=== PATIENT | male | born 1955 | race Caucasian/White ===

== ENCOUNTER 2019-04-26 14:53 | Outpatient (CLI) | payer BC ==
[~2019-04-26 14:53] MED LIST: NO HOME MEDS
[2019-04-26 15:47] LABS: BASOPHILS % (AUTO) 0.6 % (0-1); EOSINOPHILS # (AUTO) 0.1 X10'3 (0-0.9); EOSINOPHILS % (AUTO) 2.4 % (0-6); HEMATOCRIT 44.6 % (42.0-52.0); HEMOGLOBIN 15.6 g/dl (14.0-17.9); LYMPHOCYTES # (AUTO) 0.8 X10'3 (1.1-4.8); MEAN CORPUSCULAR HEMOGLOBIN 32.8 PG (27.0-31.0); MEAN CORPUSCULAR HGB CONC 34.9 g/dL (33.0-36.5); MEAN CORPUSCULAR VOLUME 93.9 FL (78-98); MEAN PLATELET VOLUME 8.6 FL (7.4-10.4); MONOCYTES # (AUTO) 0.4 X10'3 (0-0.9); MONOCYTES % (AUTO) 7.2 % (2-12); NEUTROPHILS # (AUTO) 4.4 X10'3 (1.8-7.7); NEUTROPHILS % (AUTO) 75.8 % (42-75); PLATELET COUNT 229 X10'3 (140-440); RED BLOOD COUNT 4.75 X10'6 (4.70-6.10); RED CELL DISTRIBUTION WIDTH 13.1 % (11.5-14.5); WHITE BLOOD COUNT 5.8 X10'3 (4.5-11.0)
[2019-04-26 15:57] LABS: PARTIAL THROMBOPLASTIN TIME 26 SECONDS (22-32)
[2019-04-26 16:00] LABS: ALANINE AMINOTRANSFERASE 29 U/L (12-78); ALBUMIN 4.1 G/DL (3.4-5.0); ALBUMIN/GLOBULIN RATIO 1.2 (1.1-1.5); ALKALINE PHOSPHATASE 60 IU/L (46-116); ANION GAP 7 (8-16); ASPARTATE AMINO TRANSFERASE 20 U/L (10-37); BILIRUBIN,TOTAL 0.6 MG/DL (0.1-1.0); BLOOD UREA NITROGEN 14 MG/DL (7-18); BUN/CREATININE RATIO 22.6 (5.4-32.0); CALCIUM 8.7 MG/DL (8.5-10.1); CHLORIDE 105 MMOL/L (99-107); CREATININE 0.62 MG/DL (0.60-1.10); GLUCOSE 117 MG/DL (70-104); POTASSIUM 3.7 MMOL/L (3.5-5.1); SODIUM 140 MMOL/L (135-145); TOTAL CARBON DIOXIDE 28.3 MMOL/L (24-32); TOTAL PROTEIN 7.4 G/DL (6.4-8.2); eGFR > 90 ML/MIN
== END 2019-04-26 23:59 | disposition home or self-care (01) ==
LOC: LAB 14:53
PROVIDERS: ATTEND Otolaryngology
DX: D69.1 Qualitative platelet defects (principal)
CPT/HCPCS: 36415; 80053; 85025; 85576; 85610; 85730

== ENCOUNTER 2025-02-18 14:45 | Emergency (ER) | payer MEDICARE ==
[~2025-02-18] VITALS: Ht 188 cm; Wt 134.0 kg
[2025-02-18 14:51] VITALS: TEMP 99.6
[2025-02-18 15:19] LABS: LEUKOCYTE ESTERASE ,URINE NEGATIVE (Neg); NITRITES, URINE POSITIVE (Neg); OCCULT BLOOD,URINE SMALL (Neg)
[2025-02-18 15:24] LABS: UA COLLECTION TYPE VOIDED
[2025-02-18 15:50] LABS: SQUAMOUS EPITHELIAL CELL,UR FEW /LPF (FEW)
[2025-02-18 15:51] LABS: WBC CLUMPS,URINE FEW /HPF (NEGATIVE)
[2025-02-18] MEDS: normal saline 1000ML IV soln IVB ONE (16:07)
[2025-02-18 16:13] LABS: MEAN PLATELET VOLUME 8.0 FL (7.4-10.4); RED CELL DISTRIBUTION WIDTH 13.2 % (11.5-14.5)
[2025-02-18 16:14] LABS: CREATININE 0.64 MG/DL (0.60-1.10); TOTAL CARBON DIOXIDE 24.3 MMOL/L (24-32); eCRCL 125 ML/MIN; eGFR > 90 ML/MIN
[2025-02-18] MEDS: CefTRIAXone 1000mg IM Kit (w/lidocaine diluent) IM ONE (16:31)
[2025-02-18] MEDS ORDERED: SULF1TAB49 PO (16:36)
--- NOTE | 2025-02-18 16:36 | Physician Documentation ---
History of Present Illness ~ Chief Complaint: Urinary Symptoms Stated Complaint: URINARY COMPLICATIONS Time Seen by MD: 15:07 OK to notify your PCP?: Yes Primary Medical Doctor: NONE Source: patient Mode of Arrival: POV Exam Limitations: no limitations HPI 69 y/o male with uncontrolled diabetes here for pain with urination and urinary urgency x 2days. No pre-arrival treament. Reports some mild nausea, no vomiting. No fever, chills, chest pain, sob, abdominal pain, flank pain, blood in urine. Medication Reconciliation Allergies: Coded Allergies: No Known Allergies (Unverified , 07/08/12) Miscellaneous Medications Home Med List (No Home Medications), (Reported) Past Medical History Past Medical History: No Pertinent History Alcohol Use: None Drug Use: none Review of Systems All Other Systems at this time: Reviewed and Negative Physical Exam Vital Signs: Temperature: 99.6, Source: Oral, Heart Rate: 82, Respiratory Rate: 16, BP: 135/74, Pulse Oximetry: 94, Weight: 134.000 Oxygen Flow Rate: 0 Physical Exam GENERAL: Alert, no acute distress. HEENT: NCAT, EOMI, PERRL, normal oropharynx, moist oral mucosa. NECK: Supple, trachea midline. CARDIAC: Regular rate and rhythm, no murmurs, rubs, or gallops. PV: Equal distal pulses. No lower extremity edema, cap refill less than 2 seconds. RESPIRATORY: Equal breath sounds, clear to auscultation bilaterally, no respiratory distress. GASTROINTESTINAL: Non distended, soft, nontender, No guarding or rebound. MUSCULOSKELETAL: Normal range of motion, nontender, no swelling. Normal gait. BACK: NO CVA TTP. NEUROLOGICAL: Awake, alert, and oriented x 3. SKIN: Warm/dry, no pallor, no rash. PSYCH: Alert and appropriate. Affect congruent with mood. Speech is clear. Good eye contact. Progress Results/Orders Reviewed/noted all lab results: Yes Results/Orders Orders - VERO LONGO Cult Urine + [address] (02/18/25 15:54) Completed Orders - VERO LONGO Ua W/Microscopic, Cult If Ind (02/18/25 14:54) Cbc/Diff (02/18/25 15:46) BMP (02/18/25 15:46) Normal Saline 1000ml (0.9% Sodium Chlori (02/18/25 15:50) Ceftriaxone Im Kit W/Lidocaine (Rocephin (02/18/25 16:25) Vital Signs 02/18/25 14:51 Temp 99.6 Pulse 82 Resp 16 B/P (MAP) 135/74 Pulse Ox 94 O2 Flow Rate 0 Laboratory Tests Test 02/18/25 14:54 02/18/25 15:58 Urine Specimen Description Voided Urine Color Yellow Urine Clarity Slightly cloudy Urine pH 6.0 Urine Specific [place] 1.020 Urine Protein 30 H Urine Glucose (UA) 500 H Urine Ketones >=80 Urine Occult Blood Small Urine Nitrite Positive H Urine Bilirubin Negative Urine Urobilinogen 0.2 Urine Leukocyte Esterase Negative Urine RBC 3-10 Urine WBC 10-20 H Urine WBC Clumps Few Urine Squamous Epithelial Cells Few Urine Bacteria 4+ Urine Coarse Granular Casts Urine Culture Indicated Indicated Volume Urine Centrifuged 10 ml Urine Comment White Blood Count 11.1 H Red Blood Count 4.27 L Hemoglobin 13.8 L Hematocrit 39.7 L Mean Corpuscular Volume 93.1 Mean Corpuscular Hemoglobin 32.5 H Mean Corpuscular Hemoglobin Concent 34.9 Red Cell Distribution Width 13.2 Platelet Count 148 Mean Platelet Volume 8.0 Neutrophils (%) (Auto) 89.2 H Lymphocytes (%) (Auto) 2.8 L Monocytes (%) (Auto) 7.1 Eosinophils (%) (Auto) 0.5 Basophils (%) (Auto) 0.4 Neutrophils # (Auto) 9.9 H Lymphocytes # (Auto) 0.3 L Monocytes # (Auto) 0.8 Eosinophils # (Auto) 0.1 Basophils # (Auto) 0.0 CBC Comment Sodium Level 130 L Potassium Level 4.1 Chloride Level 97 L Carbon Dioxide Level 24.3 Anion Gap 9 Blood Urea Nitrogen 14 Creatinine 0.64 Estimated GFR/1.73 m2 > 90 BUN/Creatinine Ratio 21.9 H Glucose Level 292 H Calcium Level 8.9 Albumin 3.2 L Chemistry Comments Re-Evaluation Re-Evaluation : Re-Evaluation Time: 16:37 Re-Evaluation: Improved Progress PATIENT REPORTED FEELING IMPROVED AFTER IV FLUIDS Medical Decision Making Urinary Diff Dx:Considerations: Include: AAA, Aortic dissection, Appendicitis, Appendicitis train, Bowel obstruction, Bladder outlet obstruc., Cholelithiasis, Choleangitis, Cholecystitis, DJD, Epididymitis, Hepatitis, HNP, Impaction, Musculoskeletal pain, Pancreatitis, Postoperative Comp., Prostatitis, Pyelonephritis, Renal failure, Renal infarction, Strain, Urolithiasis, Urinary Obstruction, Urethritis, Urinary retention, UTI Additional Comment WHITE COUNT SLIGHTLY ELEVATED BUT AFEBRILE, NOT TACHYCARDIC, NONTOXIC APPEARING. NO CVA TTP ON EXAM. Departure Time of Disposition: 16:34 Disposition: 01 HOME / SELF CARE / HOMELESS Impression: Primary Impression: Acute urinary tract infection Additional Impression: Diabetes mellitus Qualified Codes: E11.69 - Type 2 diabetes mellitus with other specified complication Condition: Stable Discharge Instructions: Urinary Tract Infection, Adult Additional Instructions: ANTIBIOTICS SENT TO PHARMACY WORK WITH MEDICAL PROVIDER ON GETTING A1C DOWN YOU REPORT IT WAS RECENTLY OVER 9 IF FEVER, CHILLS, VOMITING, ABDOMINAL PAIN OR ANY OTHER CONCERNING SYMPTOMS RETURN TO ER Referrals: NO PRIMARY CARE PROVIDER (PCP) Prescriptions Sulfamethoxazole/Trimethoprim (Bactrim Ds Tablet) 800 Mg-160 Mg Tablet 1 TAB PO Q12H for 14 Days, #28 TAB Prov: VERO LONGO 02/18/25 Education Educated: Patient, Family Educated regarding: diagnosis, treatment, need for follow up Signature Scribe Signature: X Attestation: VERO NAYAK Feb 18, 2025 16:36
[2025-02-18] MEDS: CefTRIAXone/D5W-Rocephin 1gm 50 ML IV ONE (16:43)
[2025-02-18 16:56] LABS: BANDS% (MANUAL) 3.0 % (0-10); LYMPHOCYTES % (MANUAL) 3.0 % (21-51); MONOCYTES % (MANUAL) 8.0 % (2-12); NEUTROPHILS % (MANUAL) 86.0 % (42-75); PLATELET ESTIMATE NORMAL
[2025-02-18 17:20] VITALS: BP 129/77; PULSE 77; RESP 16; O2SAT 98
== END 2025-02-18 17:21 | disposition home or self-care (01) ==
LOC: ER 14:45
DX: N39.0 Urinary tract infection, site not specified (principal); E11.9 Type 2 diabetes mellitus without complications
CPT/HCPCS: 36415; 80048; 81001; 85007; 85025; 87077; 87088; 87186; 96365; 99284; J0696; J7030

== ENCOUNTER 2025-06-09 12:36 | Emergency (ER) | payer MEDICARE ==
[~2025-06-09] VITALS: Ht 188 cm; Wt 134.1 kg
[2025-06-09 12:46] VITALS: TEMP 98.3
--- NOTE | 2025-06-09 13:37 | RADIOLOGY REPORT ---
CLINICAL INDICATION: RIGHT ANKLE PAIN TECHNIQUE: DI ANKLE, COMPLETE(3VW MIN), right Comparison: None FINDINGS/IMPRESSION: : Linear lucency seen in the distal fibula on lateral view only. This may represent artifact versus subtle nondisplaced fracture. Clinical correlation advised.
--- NOTE | 2025-06-09 13:37 | RADIOLOGY REPORT ---
EXAM: DI KNEE, COMP 4 VW MIN INDICATION: RIGHT KNEE PAIN TECHNIQUE: 3 views of the right knee were obtained. COMPARISON: None FINDINGS/IMPRESSION: No acute fracture or dislocations. Chronic deformity of the proximal fibula. Mild joint effusion. Mild soft tissue edema. No radiographic foreign body.
--- NOTE | 2025-06-09 13:37 | RADIOLOGY REPORT ---
CLINICAL INDICATION: RIGHT HIP PAIN TECHNIQUE: DI HIP UNILATERAL 2-3 VIEWS Comparison: None FINDINGS/IMPRESSION: : There is no evidence of acute fracture or dislocation. Soft tissues are unremarkable. Severe degenerative changes of bilateral hips.
--- NOTE | 2025-06-09 14:42 | Physician Documentation ---
History of Present Illness ~ Chief Complaint: Leg Pain Stated Complaint: FALL YESTERDAY/R LEG PAIN Time Seen by MD: 14:02 Primary Medical Doctor: NONE HPI Pleasant 69-year-old male with a mechanical fall yesterday injuring his right ankle. He has pain to the right lateral ankle with swelling and reduced range of motion. Wonders if he broke his ankle. Family member placed him in a cam walker boot and he has been using crutches to do touchdown weight only. Tetanus witin 5 years: No Medication Reconciliation Allergies: Coded Allergies: No Known Allergies (Unverified , 06/09/25) Miscellaneous Medications Home Med List (No Home Medications), (Reported) Past Medical History Past Medical History: No Pertinent History Alcohol Use: None Drug Use: none Review of Systems All Other Systems at this time: Reviewed and Negative Musculoskeletal: Reports: pain, swelling Physical Exam Vital Signs: RN Vital Signs have been reviewed: Yes, Temperature: 98.3, Source: Oral, Heart Rate: 77, Respiratory Rate: 18, BP: 160/82, Pulse Oximetry: 97, Weight: 134.090 Oxygen Flow Rate: 0 General Appearance: alert, WD/WN, mild distress Head: normal inspection EENT: PERRL/EOMI Neck: non-tender Respiratory: no respiratory distress Cardiovascular: normal peripheral pulses Ankles: limited ROM, pain, soft tissue tenderness, swelling Feet: soft tissue tenderness Nail: normal inspection Nail Bed: normal inspection Distal Function: no motor deficit, no sensory deficit Progress Results/Orders Results/Orders Vital Signs 06/09/25 12:46 Temp 98.3 Pulse 77 Resp 18 B/P (MAP) 160/82 Pulse Ox 97 O2 Flow Rate 0 Medical Decision Making Additional information obtaine: family Findings Examination history consistent with nondisplaced distal fibula fracture requiring giving orthopedic cam walker boot for comfort support immobilization. Referral to the orthopedic office of Dr. Herr for follow up. All x-rays reviewed. Patient's safely discharged in the emergency department. General Diff Dx:Considerations: Include: Contusion, Fracture Knee Diff Dx:Considerations: Include: Other (Contributory) Ankle Diff Dx:Considerations: Include: Abrasion, Arthritis, Contusion, DJD, Fracture-metatarsal, Fracture-fibula, Fracture-tarsal, Fracture-tibia, Gout, Hematoma, Laceration, Malunion, Neurovascular injury, Nonunion, Open fracture, Osteomyelitis, Rheumatoid arthritis, Sprain, Septic, Ulcer, Other Foot Diff Dx:Considerations: Include: Other Toe Diff Dx:Considerations: Include: Other (Noncontributory noncontributory) Departure Disposition: HOME / SELF CARE / HOMELESS Impression: Primary Impression: Fracture of distal fibula Qualified Codes: S82.831A - Other fracture of upper and lower end of right fibula, initial encounter for closed fracture Discharge Instructions: Fibular Ankle Fracture Treated With or Without Immobilization, Adult Additional Instructions: Please wear a boot for comfort and support. Please do your best to do touchdown weight with crutch use and keep leg elevated. Please make follow up appointment with the orthopedic office of Dr. Herr. Return to the emergency department the interim as needed. Thank you for visiting [facility] and have a happy Thanksgiving. Referrals: NO PRIMARY CARE PROVIDER (PCP) Education Educated: Patient, Family Educated regarding: diagnosis, treatment, prognosis Signature Scribe Signature: . Attestation: . BOBY VOSS PAC Jun 09, 2025 14:42
[2025-06-09 15:03] VITALS: BP 139/88; PULSE 76; RESP 16; O2SAT 98
== END 2025-06-09 14:55 | disposition home or self-care (01) ==
LOC: ER 12:36
DX: S82.831A Other fracture of upper and lower end of right fibula, initial encounter for closed fracture (principal); W19.XXXA Unspecified fall, initial encounter; Y93.89 Activity, other specified; Y92.89 Other specified places as the place of occurrence of the external cause; Y99.8 Other external cause status
CPT/HCPCS: 73502; 73564; 73610; 99284; L4360